=== PATIENT | female | born 1950 | race Caucasian/White ===

== ENCOUNTER 2017-11-15 09:17 | Observation (INO) | payer MEDICARE, OTHER ==
--- NOTE | 2017-11-15 09:47 | ER Document Report ---
ED General - General Chief Complaint: General Weakness Stated Complaint: WEAKNESS Time Seen by Provider: 11/15/17 09:29 Notes: 66-year-old female arrives via EMS for complaints of generally not feeling well with diffuse body aches. History of rheumatoid arthritis. Taking Biologics as well as Celebrex. No fever, chills, sweats. States that her medications have been increased recently and taking more Celebrex. Also but has begun taking Tylenol arthritis formula approximately 6 times a day. Denies any chest pain, shortness of breath. States that she is getting so weak she cannot even stand up. Family states that she normally lives alone. Does have difficulty with ambulation due to her chronic rheumatoid arthritis however is normally able to take care of herself. Was unable to even go to the bathroom so they had call 911 to transport to the hospital. TRAVEL OUTSIDE OF THE [place] IN LAST 30 DAYS: No - HPI Onset: Yesterday Onset/Duration: Worse Quality of pain: Achy Severity: Severe Pain Level: 4 Past Medical History - General Information source: Patient - Social History Smoking Status: Current Every Day Smoker Cigarette use (# per day): Yes Chew tobacco use (# tins/day): No Smoking Education Provided: Yes Frequency of alcohol use: None Drug Abuse: None Lives with: Alone Family History: Reviewed & Not Pertinent - Past Medical History Cardiac Medical History: Reports: Hx Hypercholesterolemia, Hx Hypertension Malignancy Medical History: Reports: None GI Medical History: Reports: None Musculoskeltal Medical History: Reports Hx Arthritis Skin Medical History: Reports None Psychiatric Medical History: Reports: Hx Depression - Immunizations Hx Diphtheria, Pertussis, Tetanus Vaccination: Yes Review of Systems - Review of Systems Constitutional: Malaise, Weakness. denies: Fever EENT: denies: Ear pain, Throat pain, Difficulty swallowing, Throat swelling Cardiovascular: denies: Chest pain, Palpitations, Heart racing, Dyspnea, Syncope , Dizziness Respiratory: denies: Cough, Hurts to breathe, Short of breath, Wheezing Gastrointestinal: denies: Abdominal pain, Diarrhea, Nausea, Vomiting Genitourinary: denies: Burning, Dysuria, Discharge Skin: denies: Dryness, Lesions, Lumps, Rash Hematologic/Lymphatic: denies: Anemia, Blood clots, Easy bleeding, Easy bruising , Enlarged lymph nodes, Swollen glands Neurological/Psychological: Depression, Weakness. denies: Confusion, Lost consciousness, Headaches, Numbness Physical Exam - Vital signs Vitals: Temp Pulse Resp BP Pulse Ox 97.7 F 77 18 113/81 98 11/15/17 09:29 11/15/17 09:29 11/15/17 09:29 11/15/17 09:29 11/15/17 09:29 Interpretation: Normal - General General appearance: Appears well, Alert - HEENT Head: Normocephalic, Atraumatic Eyes: Normal Pupils: PERRL - Respiratory Respiratory status: No respiratory distress Chest status: Nontender Breath sounds: Normal Chest palpation: Normal - Cardiovascular Rhythm: Regular Heart sounds: Normal auscultation Murmur: No - Abdominal Inspection: Normal Distension: No distension Bowel sounds: Normal Tenderness: Nontender Organomegaly: No organomegaly - Back Back: Normal, Nontender - Extremities General upper extremity: Normal inspection, Nontender, Normal color, Normal ROM , Normal temperature, Other - Patient does have joint abnormalities consistent with rheumatoid arthritis affecting the proximal interphalangeal joints of the hands. Do not see any obvious joint effusions of the upper or lower extremities. General lower extremity: Normal inspection, Nontender, Normal color, Normal ROM , Normal temperature, Normal weight bearing. No: Gulshan's sign - Neurological Neuro grossly intact: Yes Cognition: Normal Orientation: AAOx4 [place] Coma Scale Eye Opening: Spontaneous [place] Coma Scale Verbal: Oriented Tomas Coma Scale Motor: Obeys Commands Tomas Coma Scale Total: 15 Speech: Normal Motor strength normal: LUE, RUE, LLE, RLE Sensory: Normal - Psychological Associated symptoms: Normal affect, Normal mood - Skin Skin Temperature: Warm Skin Moisture: Dry Skin Color: Normal Course - Re-evaluation Re-evalutation: 11/15/17 10:35 We will get basic labs including Tylenol level based on this recent history of increased Tylenol usage. Will get a creatinine kinase. Patient is on a large dose of Crestor 20 mg which could be feeling some myopathies creatinine kinase may be helpful. Will give some IV fluids, pain control. Anticipate patient will likely need to be admitted. 11/15/17 11:27 Labs are fairly unremarkable at this time. Still pending urinalysis. Unlikely patient can be discharged at this time. Will admit for hydration, pain control , follow-up on urinalysis. Spoke with Dr. Marquez who will admit at this time. - Vital Signs Vital signs: Temp Pulse Resp BP Pulse Ox 97.7 F 77 18 113/81 98 11/15/17 09:29 11/15/17 09:29 11/15/17 09:29 11/15/17 09:29 11/15/17 09:29 - Laboratory Result Diagrams: 11/15/17 08:50 11/15/17 08:50 Laboratory results interpreted by me: 11/15/17 11/15/17 08:50 08:50 RBC 2.99 L Hgb 9.1 L Hct 27.0 L Plt Count 484 H Glucose 142 H Direct Bilirubin 0.5 H Creatine Kinase 22 L Acetaminophen < 10 L - EKG Interpretation by Me EKG shows normal: Sinus rhythm, Polk, Intervals, QRS Complexes, ST-T Waves Discharge - Discharge Clinical Impression: Intractable pain, Rheumatoid arthritis flare, Dehydration symptoms Condition: Good Disposition: ADMITTED OBSERVATION Admitting Provider: Hospitalist - Dr. Marquez Unit Admitted: Medical Floor Referrals: CLEVELAND ANDINO PA-C [Primary Care Provider] - Follow up as needed
[2017-11-15] MEDS ORDERED: NORMAL SALINE 1000 ML 1,000 ML IV ONE (10:04)
[2017-11-15] MEDS ORDERED: KETOROLAC TROMETHAMINE INJ/PF 30 MG/1 ML SDV IV ONE (10:04)
[2017-11-15] MEDS ORDERED: RINGERS SOLUTION,LACTATED 1,000 ML IV ONE (10:08)
[2017-11-15 10:41] LABS: ABSOLUTE LYMPHOCYTES (AUTO) 1.4 10^3/uL (0.5-4.7); ABSOLUTE MONOCYTES (AUTO) 0.8 10^3/uL (0.1-1.4); ABSOLUTE NEUT (AUTO) 6.5 10^3/uL (1.7-8.2); BASOPHILS % (AUTO) 0.4 % (0-2); HEMOGLOBIN 9.1 g/dL (12.0-15.5); LYMPHOCYTES % (AUTO) 15.6 % (13-45); MEAN CORPUSCULAR HEMOGLOBIN 30.4 pg (27.0-33.4); MEAN CORPUSCULAR HGB CONC 33.7 g/dL (32.0-36.0); MEAN CORPUSCULAR VOLUME 90 fl (80-97); MONOCYTES % (AUTO) 9.5 % (3-13); PLATELET COUNT 484 10^3/uL (150-450); RED BLOOD COUNT 2.99 10^6/uL (3.72-5.28); RED CELL DISTRIBUTION WIDTH 13.8 % (11.5-14.0); SEGMENTED NEUTROPHILS % (AUTO) 74.5 % (42-78); TOTAL CELLS COUNTED % (AUTO) 100 %; WHITE BLOOD COUNT 8.7 10^3/uL (4.0-10.5)
[2017-11-15 10:58] LABS: ALANINE AMINOTRANSFERASE 23 U/L (9-52); ALBUMIN 3.5 g/dL (3.5-5.0); ALKALINE PHOSPHATASE 98 U/L (38-126); ANION GAP 10 (5-19); ASPARTATE AMINO TRANSFERASE 23 U/L (14-36); BILIRUBIN,DIRECT 0.5 mg/dL (0.0-0.4); BILIRUBIN,TOTAL 0.5 mg/dL (0.2-1.3); BLOOD UREA NITROGEN 15 mg/dL (7-20); CALCIUM 9.9 mg/dL (8.4-10.2); CARBON DIOXIDE 27 mmol/L (22-30); CHLORIDE 103 mmol/L (98-107); CREATINE KINASE 22 U/L (30-135); GLUCOSE 142 mg/dL (75-110); LIPASE 51.8 U/L (23-300)
[2017-11-15 10:59] LABS: ACETAMINOPHEN < 10 ug/mL (10-30)
[2017-11-15] MEDS ORDERED: 1/2 NORMAL SALINE 1,000 ML IV PRN (12:02)
[2017-11-15] MEDS ORDERED: DEXTROSE 40% GEL 15 GM TUBE PO PRN ×2 (12:39)
[2017-11-15] MEDS ORDERED: GLUCAGON,HUMAN RECOMB 1 MG INJ IM PRN (12:39)
[2017-11-15] MEDS ORDERED: DEXTROSE 50%-WATER 25 GM/50 ML DISP.SYRIN IV PRN ×2 (12:39)
[2017-11-15] MEDS ORDERED: INSULIN LISPRO 100 UNIT/ML 3 ML VIAL SUBCUT PRN (12:39)
--- NOTE | 2017-11-15 12:39 | PDOC H&P ---
History of Present Illness Admission Date/PCP: CLEVELAND ANDINO History of Present Illness: SHELTON THOMPSON is a 66 year old female with history of rheumatoid arthritis, chronic pain, and ? multiple myeloma who presents to the ED for inability to walk and intractable pain which has worsened over the last 3 days. Patient has long stand history of rheumatoid arthritis. She says she has been seen by multiple gun perforator in [place]. She has previously been on prednisone, methotrexate, and other biologics. Her most recent gun perforator wanted to start her on Humira however she refused due to it's known side effects. Also was concerned with the costs of humira given that she is on SSI and has a limited monthly budget. She admits to being fired from [facility] [facility] practice. Pt states over the last 3 days she has become progressively weaker. She is usually ambulatory however has been essentially bed bound during this time period. She has been using Nucynta BID for pain control. She denies any changes to her medications or increase in recent opioid use. Also has been using tylenolol and celebrex for pain control. Denies fevers, chills, CP, SOB, abdominal pain, NV. PO intake has been poor however not unchanged from recent baseline. She has history of frequent bladder infections and notes that she occasionally has hematuria. Denies dysuria or change in urinary frequency. Daughter at bedside. Past Medical History Past Medical History: Frequent bladder infections, has pessary in place Cardiac Medical History: Reports: Hyperlipidema, Hypertension Malignancy Medical History: Reports: None GI Medical History: Reports: None Musculoskeltal Medical History: Reports: Arthritis Skin Medical History: Reports: None Psychiatric Medical History: Reports: Depression Infectious Medical History: Reports: Other Social History Information Source: Patient Lives with: Alone Smoking Status: Current Every Day Smoker Frequency of Alcohol Use: None Hx Recreational Drug Use: No Drugs: None - Pt denies Hx Prescription Drug Abuse: No - Pt denies Family History Family History: Reviewed & Not Pertinent Parental Family History Reviewed: No Children Family History Reviewed: NA Sibling(s) Family History Reviewed.: NA Medication/Allergy Home Medications: Oxycodone HCl/Acetaminophen [Percocet 10-325 Mg Tablet] 1 each PO Q6 PRN #14 tablet 06/03/14 Allergies/Adverse Reactions: No Known Allergies Allergy (Unverified 11/15/17 11:55) Physical Exam Vital Signs: Temp Pulse Resp BP Pulse Ox 97.7 F 77 18 113/81 98 11/15/17 09:29 11/15/17 09:29 11/15/17 09:29 11/15/17 09:29 11/15/17 09:29 General appearance: PRESENT: no acute distress, thin, other - Chronically ill appearing. ABSENT: well-nourished Head exam: PRESENT: normocephalic Mouth exam: PRESENT: dry mucosa Respiratory exam: PRESENT: unlabored. ABSENT: tachypnea, wheezes Cardiovascular exam: PRESENT: +S1, +S2. ABSENT: tachycardia GI/Abdominal exam: PRESENT: soft. ABSENT: tenderness Neurological exam: PRESENT: alert, awake, oriented to person, oriented to time, oriented to situation, CN II-XII grossly intact Psychiatric exam: PRESENT: anxious, appropriate affect Focused psych exam: PRESENT: flight of ideas - Reroutable Skin exam: PRESENT: other - Chronic rheumatic nodules on fingers Results Laboratory Results: 11/15/17 08:50 11/15/17 08:50 11/15/17 11/15/17 08:50 08:50 WBC 8.7 RBC 2.99 L Hgb 9.1 L Hct 27.0 L MCV 90 MCH 30.4 MCHC 33.7 RDW 13.8 Plt Count 484 H Seg Neutrophils % 74.5 Lymphocytes % 15.6 Monocytes % 9.5 Eosinophils % 0.0 Basophils % 0.4 Absolute Neutrophils 6.5 Absolute Lymphocytes 1.4 Absolute Monocytes 0.8 Absolute Eosinophils 0.0 Absolute Basophils 0.0 Sodium 140.0 Potassium 4.0 Chloride 103 Carbon Dioxide 27 Anion Gap 10 BUN 15 Creatinine 0.73 Est GFR ( Amer) > 60 Est GFR (Non-Af Amer) > 60 Glucose 142 H Calcium 9.9 Total Bilirubin 0.5 AST 23 ALT 23 Alkaline Phosphatase 98 Total Protein 7.0 Albumin 3.5 Lipase 51.8 11/15/17 11/15/17 08:50 08:50 Creatine Kinase 22 L Troponin I < 0.012 Assessment & Plan - Diagnosis (1) Physical debility Is this a current diagnosis for this admission?: Yes Plan: Appears to be acute on subacute. Patient has poorly controlled RA and chronic pain issues. There is no clear precipitating factor for new inability to ambulate. Could be fully driven by pain control. - Will consult PT for ambulation eval (2) Rheumatoid arthritis flare Is this a current diagnosis for this admission?: Yes Plan: Has been followed by rheumatology in [place]. - Unfortunately patient has fears about Humira which has been recommended by multiple rheum providers - She should be on DMARD for RA maintenance - Will start prednisone 10mg daily * 5 days to see if there is improvement in symptom control - Need to follow up with rheum to determine next steps; unfortunately there is no rheum consultation as inpatient. (3) Anemia Qualifiers: Anemia type: unspecified type Qualified Code(s): D64.9 - Anemia, unspecified Is this a current diagnosis for this admission?: No Plan: Likely chronic. Normocytic. No evidence of bleeding. - CTM for now (4) Intractable pain Is this a current diagnosis for this admission?: Yes Plan: Will continue home medications when med rec is complete, will not escalate pain medications as she follows with chronic pain as outpatient - Will start prednisone 10mg daily, short course for acute RA flair - Time Time Spent: 50 to 70 Minutes Smoking Cessation Education: 3 to 10 minutes Anticipated discharge: Home with Homehealth Within: within 24 hours
--- NOTE | 2017-11-15 13:06 | EKG REPORT ---
SEVERITY:- BORDERLINE ECG - SINUS RHYTHM BORDERLINE RIGHT AXIS DEVIATION BORDERLINE T ABNORMALITIES, ANT-LAT LEADS : Confirmed by: Tre Camacho MD 15-Nov-2017 13:05:58
[2017-11-15] MEDS ORDERED: PREDNISONE 10 MG TABLET PO SCH (13:15)
[2017-11-15 14:30] LABS: APPEARANCE,URINE CLEAR; BILIRUBIN,URINE NEGATIVE (NEGATIVE); COLOR,URINE YELLOW; GLUCOSE, URINE 150 mg/dL (NEGATIVE); KETONES,URINE NEGATIVE (NEGATIVE); LEUKOCYTE ESTERASE,URINE TRACE (NEGATIVE); NITRITE,URINE NEGATIVE (NEGATIVE); PROTEIN,URINE NEGATIVE (NEGATIVE); URINE SPECIFIC GRAVITY 1.013; UROBILINOGEN,URINE NEGATIVE mg/dL (<2.0)
[2017-11-15] MEDS ORDERED: (PENDING PHARMACY ID) (Desvenlafaxine Succinate [Pristiq] 50 MG) PO PRN (18:09)
[2017-11-15] MEDS ORDERED: (PENDING PHARMACY ID) (Tapentadol Hcl [Nucynta] 75 MG) PO SCH (18:15)
[2017-11-15] MEDS ORDERED: OXYCODONE HCL IR 5 MG TABLET PO ONE (18:30)
[2017-11-15] MEDS: ACETAMINOPHEN 325 MG TABLET PO SCH (22:00)
[2017-11-15] MEDS ORDERED: (PENDING PHARMACY ID) (Rosuvastatin Calcium [Crestor 20 Mg Tablet] 20 MG) PO SCH (22:00)
[2017-11-15] MEDS: CELECOXIB 100 MG CAPSULE PO SCH (22:00)
[2017-11-15] MEDS: ATORVASTATIN CALCIUM 40 MG TABLET PO SCH (22:01)
[2017-11-16 04:47] LABS: ABSOLUTE MONOCYTES (AUTO) 0.3 10^3/uL (0.1-1.4); ABSOLUTE NEUT (AUTO) 2.6 10^3/uL (1.7-8.2); BASOPHILS % (AUTO) 0.4 % (0-2); EOSINOPHILS % (AUTO) 0.1 % (0-6); HEMATOCRIT 21.7 % (36.0-47.0); LYMPHOCYTES % (AUTO) 26.1 % (13-45); MEAN CORPUSCULAR HGB CONC 34.1 g/dL (32.0-36.0); MEAN CORPUSCULAR VOLUME 88 fl (80-97); MONOCYTES % (AUTO) 7.9 % (3-13); PLATELET COUNT 309 10^3/uL (150-450); RED BLOOD COUNT 2.46 10^6/uL (3.72-5.28); RED CELL DISTRIBUTION WIDTH 13.5 % (11.5-14.0); SEGMENTED NEUTROPHILS % (AUTO) 65.5 % (42-78); TOTAL CELLS COUNTED % (AUTO) 100 %
[2017-11-16 05:02] LABS: HEMOGLOBIN 7.4 g/dL (12.0-15.5)
[2017-11-16 05:24] LABS: ANION GAP 10 (5-19); BLOOD UREA NITROGEN 16 mg/dL (7-20); CALCIUM 8.9 mg/dL (8.4-10.2); CARBON DIOXIDE 24 mmol/L (22-30); CHLORIDE 102 mmol/L (98-107); GLUCOSE 101 mg/dL (75-110); POTASSIUM 4.1 mmol/L (3.6-5.0); SODIUM 136.3 mmol/L (137-145)
[2017-11-16] MEDS: ACETAMINOPHEN 325 MG TABLET PO SCH ×3 (05:32→21:30)
[2017-11-16] MEDS ORDERED: HYDROCHLOROTHIAZID PO SCH (10:00)
[2017-11-16] MEDS ORDERED: ACETAMINOPHEN 325 MG TABLET PO SCH (10:00)
[2017-11-16] MEDS ORDERED: TRIAMTERENE PO SCH (10:00)
[2017-11-16] MEDS: CHOLECALCIFEROL (D3) 1,000 UNIT TABLET PO SCH (10:39)
[2017-11-16] MEDS: ENOXAPARIN SODIUM INJ 40 MG/0.4 ML DISP.SYRIN SUBCUT SCH (10:39)
[2017-11-16] MEDS: FLUOXETINE HCL 20 MG CAPSULE PO SCH (10:39)
[2017-11-16] MEDS: CELECOXIB 100 MG CAPSULE PO SCH ×2 (10:40→21:30)
[2017-11-16] MEDS: TRIAMTERENE/HYDROCHLOROTHIAZIDE 37.5-25 MG TABLET PO SCH (10:40)
[2017-11-16 14:13] LABS: HEMATOCRIT 21.5 % (36.0-47.0); MEAN CORPUSCULAR HEMOGLOBIN 30.1 pg (27.0-33.4); MEAN CORPUSCULAR HGB CONC 34.1 g/dL (32.0-36.0); MEAN CORPUSCULAR VOLUME 88 fl (80-97); PLATELET COUNT 314 10^3/uL (150-450); RED BLOOD COUNT 2.44 10^6/uL (3.72-5.28); RED CELL DISTRIBUTION WIDTH 13.4 % (11.5-14.0); WHITE BLOOD COUNT 4.7 10^3/uL (4.0-10.5)
[2017-11-16 14:16] LABS: HEMOGLOBIN 7.3 g/dL (12.0-15.5)
[2017-11-16] MEDS ORDERED: TAPENTADOL HCL PO ONE (15:15)
[2017-11-16] MEDS ORDERED: TAPENTADOL HCL PO SCH ×2 (18:00)
--- NOTE | 2017-11-16 18:25 | PDOC PROGRESS REPORT ---
Subjective Progress Note for:: 11/16/17 Subjective:: Doing much better today. Energy level improved and able to ambulate with some assistance. Worked with PT. States that this is the "best I have felt in 2 years ". PO intake improved. Denies fevers, chills, CP, SOB, abdominal pain, NV. Requesting one more day and discharge tomorrow to home. Reason For Visit: RHEUMATOID ARTHRITIS,INTRACTABLE PAIN DIFFICULTY Physical Exam Vital Signs: Temp Pulse Resp BP Pulse Ox 98.2 F 64 17 136/85 H 99 11/16/17 11:45 11/16/17 11:45 11/16/17 11:45 11/16/17 16:30 11/16/17 11:45 Intake & Output 11/15/17 11/16/17 11/17/17 06:59 06:59 06:59 Intake Total 1270 920 Output Total 0 750 Balance 1270 170 Weight 52.5 kg General appearance: PRESENT: no acute distress - Pleasant, appears very comfortable, thin Head exam: PRESENT: normocephalic Mouth exam: PRESENT: moist Cardiovascular exam: PRESENT: RRR, +S1, +S2 GI/Abdominal exam: PRESENT: soft. ABSENT: tenderness Musculoskeletal exam: PRESENT: deformity - Consistent with RA changes, other - Upper extremity strength remains limited, limite Neurological exam: PRESENT: alert, awake, CN II-XII grossly intact Psychiatric exam: PRESENT: appropriate affect Results Laboratory Results: 11/16/17 13:41 11/16/17 03:42 11/16/17 11/16/17 11/16/17 03:42 03:42 13:41 WBC 4.0 4.7 RBC 2.46 L 2.44 L Hgb 7.4 L 7.3 L Hct 21.7 L 21.5 L MCV 88 88 MCH 30.0 30.1 MCHC 34.1 34.1 RDW 13.5 13.4 Plt Count 309 314 Seg Neutrophils % 65.5 Lymphocytes % 26.1 Monocytes % 7.9 Eosinophils % 0.1 Basophils % 0.4 Absolute Neutrophils 2.6 Absolute Lymphocytes 1.0 Absolute Monocytes 0.3 Absolute Eosinophils 0.0 Absolute Basophils 0.0 Sodium 136.3 L Potassium 4.1 Chloride 102 Carbon Dioxide 24 Anion Gap 10 BUN 16 Creatinine 0.69 Est GFR ( Amer) > 60 Est GFR (Non-Af Amer) > 60 Glucose 101 Calcium 8.9 Assessment & Plan - Diagnosis (1) Physical debility Is this a current diagnosis for this admission?: Yes Plan: Improved, likely from with steroids Appears to be acute on subacute. Patient has poorly controlled RA and chronic pain issues. - Continue PT evaluation - At discharge tomorrow, could offer home health services with home PT (2) Rheumatoid arthritis flare Is this a current diagnosis for this admission?: Yes Plan: Has been followed by rheumatology in [place]. - Unfortunately patient has fears about Humira which has been recommended by multiple rheum providers - She should be on DMARD for RA maintenance - Continue prednisone 10mg daily * 5 days (end date 11/19) - Need to follow up with rheum as outpatient to determine next steps; unfortunately there is no rheum consultation as inpatient - Will need list of rheum providers at discharge (3) Anemia Qualifiers: Anemia type: unspecified type Qualified Code(s): D64.9 - Anemia, unspecified Is this a current diagnosis for this admission?: No Plan: Hg 7.4 today, however was on 100cc/hr. Likely chronic. Normocytic. No evidence of bleeding. - CTM for now - Will ONLY transfuse if Hg<7 (4) Intractable pain Is this a current diagnosis for this admission?: Yes Plan: Markedly improved, continue home medications - Also on prednisone per above - Time Time Spent with patient: Less than 15 minutes Anticipated discharge: Home Within: within 24 hours
[2017-11-16] MEDS: ATORVASTATIN CALCIUM 40 MG TABLET PO SCH (21:30)
[2017-11-17 05:11] LABS: ABSOLUTE LYMPHOCYTES (AUTO) 1.3 10^3/uL (0.5-4.7); ABSOLUTE MONOCYTES (AUTO) 0.4 10^3/uL (0.1-1.4); ABSOLUTE NEUT (AUTO) 2.6 10^3/uL (1.7-8.2); BASOPHILS % (AUTO) 0.8 % (0-2); EOSINOPHILS % (AUTO) 0.3 % (0-6); HEMATOCRIT 22.5 % (36.0-47.0); LYMPHOCYTES % (AUTO) 29.4 % (13-45); MEAN CORPUSCULAR HEMOGLOBIN 30.2 pg (27.0-33.4); MEAN CORPUSCULAR HGB CONC 33.6 g/dL (32.0-36.0); MEAN CORPUSCULAR VOLUME 90 fl (80-97); PLATELET COUNT 370 10^3/uL (150-450); RED BLOOD COUNT 2.51 10^6/uL (3.72-5.28); RED CELL DISTRIBUTION WIDTH 13.5 % (11.5-14.0); SEGMENTED NEUTROPHILS % (AUTO) 60.5 % (42-78); TOTAL CELLS COUNTED % (AUTO) 100 %; WHITE BLOOD COUNT 4.3 10^3/uL (4.0-10.5)
[2017-11-17 05:29] LABS: HEMOGLOBIN 7.6 g/dL (12.0-15.5)
[2017-11-17] MEDS: ACETAMINOPHEN 325 MG TABLET PO SCH ×3 (05:53→22:00)
[2017-11-17] MEDS: TAPENTADOL HCL PO SCH ×2 (08:43→20:37)
[2017-11-17] MEDS: FLUOXETINE HCL 20 MG CAPSULE PO SCH (10:45)
[2017-11-17] MEDS: CHOLECALCIFEROL (D3) 1,000 UNIT TABLET PO SCH (10:46)
[2017-11-17] MEDS: CELECOXIB 100 MG CAPSULE PO SCH ×2 (10:46→22:00)
[2017-11-17] MEDS: ENOXAPARIN SODIUM INJ 40 MG/0.4 ML DISP.SYRIN SUBCUT SCH (10:46)
[2017-11-17] MEDS: TRIAMTERENE/HYDROCHLOROTHIAZIDE 37.5-25 MG TABLET PO SCH (10:47)
--- NOTE | 2017-11-17 18:37 | PDOC PROGRESS REPORT ---
Subjective Progress Note for:: 11/17/17 Subjective:: Patient apparently doing better today really has no complaints X Reason For Visit: RHEUMATOID ARTHRITIS,INTRACTABLE PAIN DIFFICULTY Physical Exam Vital Signs: Temp Pulse Resp BP Pulse Ox 97.9 F 78 16 125/64 98 11/17/17 15:09 11/17/17 15:09 11/17/17 15:09 11/17/17 15:09 11/17/17 15:09 Intake & Output 11/16/17 11/17/17 11/18/17 06:59 06:59 06:59 Intake Total 1270 1586 420 Output Total 0 3150 650 Balance 1270 -1564 -230 Weight 52.5 kg 53 kg General appearance: PRESENT: thin, other - Older than stated age cachectic Head exam: PRESENT: atraumatic Eye exam: PRESENT: conjunctiva pink, EOMI, PERRLA. ABSENT: scleral icterus Neck exam: ABSENT: carotid bruit, JVD, lymphadenopathy, thyromegaly Respiratory exam: PRESENT: clear to auscultation karen. ABSENT: rales, rhonchi, wheezes Cardiovascular exam: PRESENT: RRR. ABSENT: diastolic murmur, rubs, systolic murmur Pulses: PRESENT: normal dorsalis pedis pul GI/Abdominal exam: PRESENT: normal bowel sounds, soft. ABSENT: distended, guarding, mass, organolmegaly, rebound, tenderness Extremities exam: PRESENT: joint swelling. ABSENT: calf tenderness, tenderness Musculoskeletal exam: PRESENT: deformity Neurological exam: PRESENT: alert, awake, oriented to person, oriented to time, oriented to situation Psychiatric exam: PRESENT: appropriate affect, normal mood. ABSENT: homicidal ideation, suicidal ideation Results Laboratory Results: 11/17/17 03:35 11/16/17 03:42 11/17/17 03:35 WBC 4.3 RBC 2.51 L Hgb 7.6 L Hct 22.5 L MCV 90 MCH 30.2 MCHC 33.6 RDW 13.5 Plt Count 370 Seg Neutrophils % 60.5 Lymphocytes % 29.4 Monocytes % 9.0 Eosinophils % 0.3 Basophils % 0.8 Absolute Neutrophils 2.6 Absolute Lymphocytes 1.3 Absolute Monocytes 0.4 Absolute Eosinophils 0.0 Absolute Basophils 0.0 Assessment & Plan - Time Time Spent with patient: 15-24 minutes Medications reviewed and adjusted accordingly: Yes Within: within 48 hours - Plan Summary Plan Summary: Anemia likely chronic however hemoglobin has been down trending possibly from hemodilution. There is no evidence of acute blood loss but patient need to be further monitored to ensure stability. 2. Rheumatoid arthritis flare patient is being followed by deoiling machine operator in [place]. She will follow-up as outpatient. 3. Physical debility she apparently improved with steroids. I will go ahead and continue short-term steroids and see how she does. Patient says that she had been off and on steroids over the years usually with good results
[2017-11-17] MEDS ORDERED: BISACODYL 5 MG TABEC PO PRN (18:41)
[2017-11-17] MEDS: ATORVASTATIN CALCIUM 40 MG TABLET PO SCH (21:54)
[2017-11-18 04:50] LABS: HEMATOCRIT 22.7 % (36.0-47.0); MEAN CORPUSCULAR HEMOGLOBIN 28.8 pg (27.0-33.4); MEAN CORPUSCULAR VOLUME 87 fl (80-97); PLATELET COUNT 354 10^3/uL (150-450); RED CELL DISTRIBUTION WIDTH 13.7 % (11.5-14.0)
[2017-11-18 04:55] LABS: HEMOGLOBIN 7.5 g/dL (12.0-15.5)
[2017-11-18] MEDS: ACETAMINOPHEN 325 MG TABLET PO SCH ×3 (06:25→21:47)
[2017-11-18] MEDS: TAPENTADOL HCL PO SCH ×2 (08:13→21:47)
[2017-11-18] MEDS: ENOXAPARIN SODIUM INJ 40 MG/0.4 ML DISP.SYRIN SUBCUT SCH (10:04)
[2017-11-18] MEDS: CHOLECALCIFEROL (D3) 1,000 UNIT TABLET PO SCH (10:04)
[2017-11-18] MEDS: FLUOXETINE HCL 20 MG CAPSULE PO SCH (10:05)
[2017-11-18] MEDS: PREDNISONE 10 MG TABLET PO SCH (10:05)
[2017-11-18] MEDS: CELECOXIB 100 MG CAPSULE PO SCH ×2 (10:05→21:47)
[2017-11-18] MEDS: TRIAMTERENE/HYDROCHLOROTHIAZIDE 37.5-25 MG TABLET PO SCH (10:06)
[2017-11-18] MEDS: POLYETHYLENE GLYCOL 3350 POWDER 17 GM/1 PACKET PO SCH (10:07)
[2017-11-18] MEDS: DOCUSATE SODIUM 100 MG CAPSULE PO SCH (10:07)
--- NOTE | 2017-11-18 12:52 | PDOC PROGRESS REPORT ---
Subjective Progress Note for:: 11/18/17 Subjective:: Says she feels somewhat weaker today She feels her joints a little bit stiffer and not able to move around as much. She denies any bleeding. There is no melena, hematochezia or hematemesis Reason For Visit: RHEUMATOID ARTHRITIS,INTRACTABLE PAIN DIFFICULTY Physical Exam Vital Signs: Temp Pulse Resp BP Pulse Ox 98.1 F 74 16 128/88 H 96 11/18/17 11:15 11/18/17 11:15 11/18/17 11:15 11/18/17 11:15 11/18/17 11:15 Intake & Output 11/17/17 11/18/17 11/19/17 06:59 06:59 06:59 Intake Total 1586 895 0 Output Total 3150 2300 Balance -1564 -1405 0 Weight 53 kg 54.1 kg General appearance: PRESENT: no acute distress, cooperative, thin - Undernourished Head exam: PRESENT: atraumatic Eye exam: PRESENT: conjunctiva pink, EOMI, PERRLA. ABSENT: scleral icterus Ear exam: PRESENT: normal external ear exam Respiratory exam: PRESENT: clear to auscultation karen. ABSENT: rales, rhonchi, wheezes Cardiovascular exam: PRESENT: RRR. ABSENT: diastolic murmur, rubs, systolic murmur GI/Abdominal exam: PRESENT: normal bowel sounds, soft. ABSENT: distended, guarding, mass, organolmegaly, rebound, tenderness Rectal exam: PRESENT: deferred Musculoskeletal exam: PRESENT: deformity - Both hands. ABSENT: full ROM Neurological exam: PRESENT: alert, awake, oriented to person, oriented to place , oriented to time, oriented to situation Psychiatric exam: PRESENT: appropriate affect, normal mood. ABSENT: homicidal ideation, suicidal ideation Results Laboratory Results: 11/18/17 03:34 11/16/17 03:42 11/18/17 03:34 WBC 4.0 RBC 2.60 L Hgb 7.5 L Hct 22.7 L MCV 87 MCH 28.8 MCHC 33.0 RDW 13.7 Plt Count 354 Assessment & Plan - Time Time Spent with patient: 15-24 minutes Medications reviewed and adjusted accordingly: Yes Anticipated discharge: Home Within: within 48 hours - Inpatient Certification Based on my medical assessment, after consideration of the patient's comorbidities, presenting symptoms, or acuity I expect that the services needed warrant INPATIENT care.: Yes Medical Necessity: Need for Pain Control - Plan Summary Plan Summary: 1. Anemia likely chronic however hemoglobin has trended down although remains relatively stable. There is no evidence of acute blood loss but patient need to be further monitored to ensure stability. There has been no azotemia and vital signs have been stable 2. 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 She is currently on Celebrex as well as a prednisone. She will follow-up as outpatient. 3. Physical debility we will have PT evaluate her in a.m.
[2017-11-18] MEDS: ATORVASTATIN CALCIUM 40 MG TABLET PO SCH (21:47)
[2017-11-19 06:36] LABS: HEMATOCRIT 22.9 % (36.0-47.0); MEAN CORPUSCULAR HEMOGLOBIN 29.6 pg (27.0-33.4); MEAN CORPUSCULAR HGB CONC 33.3 g/dL (32.0-36.0); MEAN CORPUSCULAR VOLUME 89 fl (80-97); PLATELET COUNT 377 10^3/uL (150-450); RED BLOOD COUNT 2.58 10^6/uL (3.72-5.28); RED CELL DISTRIBUTION WIDTH 13.7 % (11.5-14.0); RETICULOCYTE COUNT (AUTO) 1.92 % (0.66-2.85); WHITE BLOOD COUNT 4.6 10^3/uL (4.0-10.5)
[2017-11-19 06:41] LABS: ANION GAP 8 (5-19); BLOOD UREA NITROGEN 22 mg/dL (7-20); CALCIUM 10.1 mg/dL (8.4-10.2); CARBON DIOXIDE 29 mmol/L (22-30); CHLORIDE 98 mmol/L (98-107); GLUCOSE 89 mg/dL (75-110); IRON(TIBC) 37.2 ug/dL (37-170); POTASSIUM 4.3 mmol/L (3.6-5.0); SODIUM 135.2 mmol/L (137-145)
[2017-11-19 06:42] LABS: HEMOGLOBIN 7.6 g/dL (12.0-15.5)
[2017-11-19] MEDS: ACETAMINOPHEN 325 MG TABLET PO SCH ×2 (06:58→13:36)
[2017-11-19 07:47] LABS: FOLATE 8.48 ng/mL (>2.76)
[2017-11-19] MEDS: ENOXAPARIN SODIUM INJ 40 MG/0.4 ML DISP.SYRIN SUBCUT SCH (09:15)
[2017-11-19] MEDS: TAPENTADOL HCL PO SCH (09:15)
[2017-11-19] MEDS: PREDNISONE 10 MG TABLET PO SCH (09:16)
[2017-11-19] MEDS: FLUOXETINE HCL 20 MG CAPSULE PO SCH (09:16)
[2017-11-19] MEDS: DOCUSATE SODIUM 100 MG CAPSULE PO SCH (09:17)
[2017-11-19] MEDS: CHOLECALCIFEROL (D3) 1,000 UNIT TABLET PO SCH (09:17)
[2017-11-19] MEDS: TRIAMTERENE/HYDROCHLOROTHIAZIDE 37.5-25 MG TABLET PO SCH (09:17)
[2017-11-19] MEDS: CELECOXIB 100 MG CAPSULE PO SCH (09:22)
[2017-11-19] MEDS: POLYETHYLENE GLYCOL 3350 POWDER 17 GM/1 PACKET PO SCH (11:00)
[2017-11-19 12:00] VITALS: BP 105/59
--- NOTE | 2017-11-19 18:33 | PDOC DISCHARGE SUMMARY ---
General - Admit/Disc Date/PCP Admission Date/Primary Care Provider: 11/15/17 12:13 PRAKASH DAVILA MD Discharge Date: 11/19/17 - Discharge Diagnosis (1) Noncompliance w/medication treatment due to intermit use of medication Is this a current diagnosis for this admission?: Yes (2) Anemia Is this a current diagnosis for this admission?: Yes (3) Debility Is this a current diagnosis for this admission?: Yes (4) Intractable pain Is this a current diagnosis for this admission?: Yes (5) Rheumatoid arthritis flare Is this a current diagnosis for this admission?: Yes - Additional Information Resuscitation Status: Full Code Discharge Diet: As Tolerated Discharge Activity: Activity As Tolerated Prescriptions: Prednisone [Deltasone 10 mg Tablet] 10 mg PO DAILY #3 tablet Home Medications: Acetaminophen [Tylenol 325 mg Tablet] 650 mg PO TID 11/15/17 Celecoxib [Celebrex 100 mg Capsule] 100 mg PO BID 11/15/17 Cholecalciferol (Vitamin D3) [Vitamin D3 5000 unit Capsule] 5,000 unit PO DAILY 11/15/17 Desvenlafaxine Succinate [Pristiq] 50 mg PO DAILYP PRN 11/15/17 Fluoxetine HCl [Prozac] 40 mg PO DAILY 11/15/17 Rosuvastatin Calcium [Crestor 20 mg Tablet] 20 mg PO QHS 11/15/17 Tapentadol HCl [Nucynta] 75 mg PO BID 11/15/17 Triamterene/Hydrochlorothiazid [Dyazide 37.5-25 Capsule] 1 each PO DAILY Prednisone [Deltasone 10 mg Tablet] 10 mg PO DAILY #3 tablet 11/19/17 History of Present Illness Patient complains of: with intractable pain and difficulty ambulating which was thought to be secondary to an acute flare of rheumatoid arthritis. History of Present Illness: SHELTON THOMPSON is a 66 year old female admitted with intractable pain and difficulty ambulating which was thought to be secondary to an acute flare of rheumatoid arthritis. Hospital Course Hospital Course: Admitted with intractable pain and difficulty ambulating which was thought to be secondary to an acute flare of rheumatoid arthritis. She does have a longstanding history of rheumatoid arthritis but apparently had been somewhat noncompliant as she was concerned with the cost and adverse effects of Biologics so her production machinist had apparently stopped seeing her. Patient was admitted and started on pain control and she was also started on a low-dose of prednisone which seemed to help her. She was found to be anemic however this was felt to be a chronic. Although her initial hemoglobin on admission was 9.4 he did drop down to about 7.5 where it remained and so this is actually felt to be patient's baseline. There was no evidence of any acute bleeding there was no hemodynamic instability. She seemed to be controlled on current analgesia regimen and so she has been discharged home in stable condition Physical Exam Vital Signs: Temp Pulse Resp BP Pulse Ox 97.8 F 69 16 105/59 L 99 11/19/17 12:00 11/19/17 12:00 11/19/17 12:00 11/19/17 12:00 11/19/17 12:00 Intake & Output 11/18/17 11/19/17 11/20/17 06:59 06:59 06:59 Intake Total 895 1117 Output Total 2300 3050 Balance -1405 -1933 Weight 54.1 kg 55.3 kg General appearance: PRESENT: no acute distress, thin Head exam: PRESENT: atraumatic Eye exam: PRESENT: conjunctiva pink, EOMI, PERRLA. ABSENT: scleral icterus Respiratory exam: PRESENT: clear to auscultation karen. ABSENT: rales, rhonchi, wheezes Cardiovascular exam: PRESENT: RRR. ABSENT: diastolic murmur, rubs, systolic murmur Pulses: PRESENT: normal dorsalis pedis pul Rectal exam: PRESENT: deferred Extremities exam: PRESENT: other - MCP joints swollen bilaterally Neurological exam: PRESENT: alert, awake, oriented to place, oriented to time, reflexes normal Psychiatric exam: PRESENT: appropriate affect, normal mood. ABSENT: homicidal ideation, suicidal ideation Results Laboratory Results: 11/19/17 05:56 11/19/17 05:56 11/19/17 11/19/17 05:56 05:56 WBC 4.6 RBC 2.58 L Hgb 7.6 L Hct 22.9 L MCV 89 MCH 29.6 MCHC 33.3 RDW 13.7 Plt Count 377 Retic Count (auto) 1.92 Absolute Retic 0.050 Sodium 135.2 L Potassium 4.3 Chloride 98 Carbon Dioxide 29 Anion Gap 8 BUN 22 H Creatinine 0.74 Est GFR ( Amer) > 60 Est GFR (Non-Af Amer) > 60 Glucose 89 Calcium 10.1 Iron 37.2 TIBC 285 % Saturation 13 Ferritin 134.00 Vitamin B12 632.0 Folate 8.48 Qualifiers - * [place] BEING DISCHARGED WITH ANY OF THE FOLLOWING DIAGNOSIS?: No Plan Time Spent: Greater than 30 Minutes - Follow up with PCP re Anemia
== END 2017-11-19 16:34 | disposition home health service (06) ==
LOC: ER 09:17 → EH 12:13 → 5 14:54
PROVIDERS: ADMIT Student in an Organized Health Care Education/Training Program; ATTEND Student in an Organized Health Care Education/Training Program
PROC: HZ31ZZZ Individual Counseling for Substance Abuse Treatment, Behavioral (ICD-10-PCS; principal; 2017-11-15)
DX: Z91.14 Patient's other noncompliance with medication regimen (principal); D64.9 Anemia, unspecified; R53.81 Other malaise; R52 Pain, unspecified; M06.9 Rheumatoid arthritis, unspecified; R26.2 Difficulty in walking, not elsewhere classified; F17.200 Nicotine dependence, unspecified, uncomplicated; R64 Cachexia; Z68.21 Body mass index [BMI] 21.0-21.9, adult; Z74.01 Bed confinement status; Z96.0 Presence of urogenital implants; Z79.899 Other long term (current) drug therapy
CPT/HCPCS: 93005; 99285; 96361; 96374; 36415 ×5; 87040; 82962 ×2; 82607; 82550; 82728; 82746; 83540; 83550; 83690; 84443; 80307; 85025 ×3; 85027 ×3; 85045; 80048 ×2; 80053; 81001; 84484; 84466; 93010; 97110 ×3; 97116 ×2; 97163; 97535; 97167; 99406; A9270 ×26; J1885; J1650 ×4; G8978; G8979; G8987; G8988; J7512

== ENCOUNTER 2018-11-26 19:21 | Emergency (ER) | payer MEDICARE, OTHER ==
[2018-11-26] MEDS ORDERED: RINGERS SOLUTION,LACTATED 1,000 ML IV ONE (21:15)
--- NOTE | 2018-11-26 21:19 | ER Document Report ---
ED Medical Screen (RME) - General Chief Complaint: Abscess Stated Complaint: ABSCESS/NOSE Time Seen by Provider: 11/26/18 21:04 Primary Care Provider: PRAKASH DAVILA MD [Primary Care Provider] - Follow up as needed Notes: Patient is a 68-year-old female presents to the emergency department for redness and swelling noted to her nose. States she was at a primary care provider 3 days ago was placed on Keflex and Bactroban ointment. States she has been taking medications as prescribed. Patient states that the lesion has not gotten any worse but has also not gotten any better. Patient states she had a fever of 100.6 prior to arrival to the emergency room. States her primary care provider called her and told her to go to the emergency room. GENERAL: Alert, interacts well. No acute distress. ENT: Oral mucosa moist, tongue midline. Erythema and swelling noted patient's septum, with a honey crusted lesion noted right naris. I have greeted and performed a rapid initial assessment of this patient. A comprehensive ED assessment and evaluation of the patient, analysis of test results and completion of the medical decision making process will be conducted by additional ED providers. TRAVEL OUTSIDE OF THE [place] IN LAST 30 DAYS: No - Related Data Allergies/Adverse Reactions: Iodinated Contrast- Oral and IV Dye Allergy (Unknown, Verified 11/15/17 18:01) All the Pérez Allergy (Uncoded 11/15/17 18:11) Past Medical History - Social History Frequency of alcohol use: None Drug Abuse: None - Past Medical History Cardiac Medical History: Reports: Hx Hypercholesterolemia, Hx Hypertension Renal/ Medical History: Denies: Hx Peritoneal Dialysis Musculoskeltal Medical History: Reports Hx Arthritis - R/A Psychiatric Medical History: Reports: Hx Depression Past Surgical History: Reports: Hx Hysterectomy - Immunizations Hx Diphtheria, Pertussis, Tetanus Vaccination: Yes History of Influenza Vaccine for 06/2017 - 11/2017 Season: No Physical Exam - Vital signs Vitals: Temp Pulse Resp BP Pulse Ox 100 F 90 17 167/92 H 98 11/26/18 19:34 11/26/18 19:34 11/26/18 19:34 11/26/18 19:34 11/26/18 19:34 Course - Vital Signs Vital signs: Temp Pulse Resp BP Pulse Ox 100 F 90 17 167/92 H 98 11/26/18 19:34 11/26/18 19:34 11/26/18 19:34 11/26/18 19:34 11/26/18 19:34 Doctor's Discharge - Discharge Referrals: PRAKASH DAVILA MD [Primary Care Provider] - Follow up as needed
[2018-11-26 22:15] LABS: ABSOLUTE BASOPHILS # (AUTO) 0.1 10^3/uL (0.0-0.2); ABSOLUTE EOSINOPHILS # (AUTO) 0.1 10^3/uL (0.0-0.6); ABSOLUTE LYMPHOCYTES (AUTO) 1.9 10^3/uL (0.5-4.7); ABSOLUTE MONOCYTES (AUTO) 0.6 10^3/uL (0.1-1.4); ABSOLUTE NEUT (AUTO) 8.7 10^3/uL (1.7-8.2); BASOPHILS % (AUTO) 0.5 % (0-2); HEMATOCRIT 35.6 % (36.0-47.0); HEMOGLOBIN 12.1 g/dL (12.0-15.5); LYMPHOCYTES % (AUTO) 16.6 % (13-45); MEAN CORPUSCULAR HEMOGLOBIN 29.8 pg (27.0-33.4); MEAN CORPUSCULAR HGB CONC 33.8 g/dL (32.0-36.0); MEAN CORPUSCULAR VOLUME 88 fl (80-97); MONOCYTES % (AUTO) 5.5 % (3-13); PLATELET COUNT 323 10^3/uL (150-450); RED BLOOD COUNT 4.05 10^6/uL (3.72-5.28); RED CELL DISTRIBUTION WIDTH 16.4 % (11.5-14.0); SEGMENTED NEUTROPHILS % (AUTO) 76.4 % (42-78); TOTAL CELLS COUNTED % (AUTO) 100 %; WHITE BLOOD COUNT 11.4 10^3/uL (4.0-10.5)
[2018-11-26 22:39] LABS: ALANINE AMINOTRANSFERASE 12 U/L (9-52); ALBUMIN 4.2 g/dL (3.5-5.0); ALKALINE PHOSPHATASE 96 U/L (38-126); ANION GAP 10 (5-19); ASPARTATE AMINO TRANSFERASE 29 U/L (14-36); BILIRUBIN,DIRECT 0.4 mg/dL (0.0-0.4); BILIRUBIN,TOTAL 0.7 mg/dL (0.2-1.3); BLOOD UREA NITROGEN 33 mg/dL (7-20); CALCIUM 10.2 mg/dL (8.4-10.2); CARBON DIOXIDE 29 mmol/L (22-30); CHLORIDE 97 mmol/L (98-107); GLUCOSE 104 mg/dL (75-110); POTASSIUM 4.1 mmol/L (3.6-5.0); SODIUM 135.5 mmol/L (137-145); TOTAL PROTEIN 7.6 g/dL (6.3-8.2)
[2018-11-26] MEDS ORDERED: DOXYCYCLINE HYCLATE 100 MG TABLET PO ONE (23:29)
[2018-11-26] MEDS ORDERED: HYDROCODONE/ACETAMINOPHEN 5-325 MG TABLET PO ONE (23:30)
--- NOTE | 2018-11-26 23:32 | ER Document Report ---
ED General - General Chief Complaint: Abscess Stated Complaint: ABSCESS/NOSE Time Seen by Provider: 11/26/18 21:04 Primary Care Provider: PRAKASH DAVILA MD [Primary Care Provider] - Follow up as needed Notes: Patient is a 68-year-old female presents to the emergency department for redness and swelling noted to her nose. States she was at a primary care provider 3 days ago was placed on Keflex and Bactroban ointment. States she has been taking medications as prescribed. Patient states that the lesion has not gotten any worse but has also not gotten any better. Patient states she had a fever of 100.6 prior to arrival to the emergency room. States her primary care provider called her and told her to go to the emergency room. Past medical history: Rheumatoid arthritis, hypertension Medications: Losartan, HCTZ, Celebrex, Prozac Allergies: Iodine, lidocaine TRAVEL OUTSIDE OF THE [place] IN LAST 30 DAYS: No - Related Data Allergies/Adverse Reactions: Iodinated Contrast- Oral and IV Dye Allergy (Unknown, Verified 11/15/17 18:01) All the Pérez Allergy (Uncoded 11/15/17 18:11) Past Medical History - General Information source: Patient - Social History Smoking Status: Current Every Day Smoker Frequency of alcohol use: None Drug Abuse: None Family History: Reviewed & Not Pertinent Patient has suicidal ideation: No Patient has homicidal ideation: No - Past Medical History Cardiac Medical History: Reports: Hx Hypercholesterolemia, Hx Hypertension Renal/ Medical History: Denies: Hx Peritoneal Dialysis Musculoskeletal Medical History: Reports Hx Arthritis - R/A Psychiatric Medical History: Reports: Hx Depression Past Surgical History: Reports: Hx Hysterectomy - Immunizations Hx Diphtheria, Pertussis, Tetanus Vaccination: Yes Review of Systems - Review of Systems Constitutional: See HPI EENT: See HPI Cardiovascular: No symptoms reported Respiratory: No symptoms reported Gastrointestinal: No symptoms reported Genitourinary: No symptoms reported Female Genitourinary: No symptoms reported Musculoskeletal: No symptoms reported Skin: See HPI Hematologic/Lymphatic: No symptoms reported Neurological/Psychological: No symptoms reported Physical Exam - Vital signs Vitals: Temp Pulse Resp BP Pulse Ox 100 F 90 17 167/92 H 98 11/26/18 19:34 11/26/18 19:34 11/26/18 19:34 11/26/18 19:34 11/26/18 19:34 - Notes Notes: GENERAL: Alert, interacts well. No acute distress. HEAD: Normocephalic, atraumatic. EYES: Pupils equal, round, and reactive to light. Extraocular movements intact. ENT: Oral mucosa moist, tongue midline. Nares patent, no nasal septal hematoma, erythema noted to nasal septum and bilateral nasal folds, honey crusted lesion noted to right side of nasal septum with scant purulent discharge noted. NECK: Full range of motion. Supple. Trachea midline. LUNGS: Clear to auscultation bilaterally, no wheezes, rales, or rhonchi. No respiratory distress. HEART: Regular rate and rhythm. No murmur ABDOMEN: Soft, non-tender. Non-distended. Bowel sounds present in all 4 quadrants. EXTREMITIES: Moves all 4 extremities spontaneously. No edema, normal radial and dorsalis pedis pulses bilaterally. No cyanosis. BACK: no cervical, thoracic, lumbar midline tenderness. No saddle anesthesia, normal distal neurovascular exam. NEUROLOGICAL: Alert and oriented x3. Normal speech. cranial nerves II through XII grossly intact. PSYCH: Normal affect, normal mood. SKIN: Warm, dry, normal turgor.. Course - Re-evaluation Re-evalutation: Patient's labs show a slight leukocytosis of 11.4 with an absolute neutrophil count of 8.7, lactate 1.0. Patient has remained afebrile without antibiotic treatment in the emergency room. 11/26/18 23:31 Ultrasound done at bedside by myself supervised by Dr. Beaver shows no obvious fluid collection. Discussed treating the patient with doxycycline and pain medication. Discussed close follow-up with ENT and primary care provider. Discussed continued use of Bactroban ointment. Patient stable for discharge. - Vital Signs Vital signs: Temp Pulse Resp BP Pulse Ox 98.6 F 90 17 167/75 H 98 11/26/18 22:34 11/26/18 19:34 11/26/18 19:34 11/26/18 22:34 11/26/18 22:34 - Laboratory Result Diagrams: 11/26/18 22:02 11/26/18 22:02 Laboratory results interpreted by me: 11/26/18 11/26/18 22:02 22:02 WBC 11.4 H Hct 35.6 L RDW 16.4 H Absolute Neutrophils 8.7 H Sodium 135.5 L Chloride 97 L BUN 33 H Discharge - Discharge Clinical Impression: Cellulitis Qualifiers: Site of cellulitis: face Qualified Code(s): L03.211 - Cellulitis of face Condition: Stable Disposition: HOME, SELF-CARE Instructions: Cellulitis ([facility]) Additional Instructions: As we discussed you have been seen and treated in the emergency department for infection to your nose. Please stop taking the Keflex antibiotic your primary care provider gave you and start taking doxycycline the medication that I have given you. Please continue to use the mupirocin ointment on your nose 3 times a day. Please follow-up with your primary care provider in the next 24-48 hours also I have given you phone numbers for ENT follow-up. Please follow-up with them should you not be able to get into your primary care provider's office. Please also return to the emergency room should you have any other concerning symptoms. Prescriptions: Doxycycline Hyclate 100 mg PO BID #14 capsule Referrals: PRAKASH DAVILA MD [Primary Care Provider] - Follow up as needed MICHELE QUIROZ DO [ASSOCIATE] - Follow up as needed
[2018-11-26] MEDS ORDERED: HYDROCODONE/ACETAMINOPHEN 5-325 MG (6 TAB/ER DISP) PO PRN (23:38)
[2018-11-27 00:09] VITALS: BP 113/82
== END 2018-11-27 00:09 | disposition home or self-care (01) ==
LOC: ER 19:21
DX: L03.211 Cellulitis of face (principal); L02.01 Cutaneous abscess of face; R50.9 Fever, unspecified; I10 Essential (primary) hypertension; Z79.899 Other long term (current) drug therapy; F17.200 Nicotine dependence, unspecified, uncomplicated
CPT/HCPCS: 99283; 96360; 36415; 85025; 80053; 83605; A9270 ×3; J7120